=== PATIENT | male | born 1995 | race Hispanic/Latino ===

== ENCOUNTER 2022-06-01 13:26 | Emergency (ER) | payer SELFPAY ==
[2022-06-01 14:59] VITALS: BP 149/71; PULSE 76; RESP 16; TEMP 37.2; O2SAT 100
--- NOTE | 2022-06-01 16:31 | PC.NURSE ---
1558- I did not see nor do any assessments on this pt. Tech attempted to call pt for triage x3s, pt did not answer.
== END 2022-06-01 16:21 | disposition left against medical advice (07) ==
PROVIDERS: Emergency Provider Internal Medicine Hematology & Oncology
DX: Z53.21 Procedure and treatment not carried out due to patient leaving prior to being seen by health care provider (principal)
CPT/HCPCS: 99199

== ENCOUNTER 2022-06-02 13:10 | Emergency (ER) | payer BC, SELFPAY ==
--- NOTE | ~2022-06-02 | XR_ITS ---
EXAMINATION: XR chest 2V DATE: 06/02/2022 14:21 INDICATION: Cough. TECHNIQUE: Frontal and lateral views of the chest were obtained. COMPARISON: None. FINDINGS: The chest demonstrates clear lungs without pneumonia, pleural effusion, or pneumothorax. Th e heart size is normal. IMPRESSION: 1. No acute cardiopulmonary disease. Reviewed, dictated and finalized at location A. BASIS ADMINISTRATOR
[2022-06-02 13:37] VITALS: BP 135/64; PULSE 91; RESP 16; TEMP 37.6; O2SAT 99
--- NOTE | 2022-06-02 13:43 | ED.URI ---
HPI - URI/Sore Throat General Chief Complaint: Upper Respiratory Infection Stated Complaint: COUGH Time Seen by Provider: 06/02/22 14:00 Source: patient Mode of arrival: ambulatory Limitations: no limitations History of Present Illness HPI Narrative: Carlos is a 26-year-old male patient presenting to the clinic today with complaints of chest congestion and cough x1 week. He reports he is bringing up some green and brownish red phlegm. He denies smoking. He has felt feverish and has had chills. MD elicited complaint: sore throat and nasal congestion Related Data Allergies Allergy/AdvReac Type Severity Reaction Status Date / Time No Known Allergies Allergy Verified 06/02/22 13:19 Review of Systems Review of Systems: Pertinent positives per HPI. Patient denies any fever, chills, rash, headache, visual changes, dizziness, shortness of breath, chest pain, palpitations, nausea, vomiting, diarrhea, constipation, abdominal pain, or any urinary issues. PMFSH Comments At the time of my signature, I reviewed and agree with the nursing past medical, surgical, social, and family history. There is no relevant family history pertinent to the patient complaint. Exam Narrative: General: Well-developed, well nourished, in no apparent distress Head: Normocephalic, atraumatic Eyes: Pupils equally round and reactive to light bilaterally, EOM intact, sclera and conjunctive clear, no discharge, lids normal Ears: TMs intact and clear, ear canals clear, no drainage, grossly hearing normal. Nose: Nares patent, no discharge, no inflammation, no sinus tenderness. Mouth: Oral pharynx without lesions or masses, good dentition, MMM. Neck: Supple, trachea midline, no enlargement of anterior or posterior cervical nodes, no thyroid masses or goiter palpable. Cardio: Regular rate and rhythm, s1 and s2 normal, no murmur appreciated. Resp: Clear to auscultation bilaterally, no rhonchi, rales, wheezing or rubs Course Course Emergency Course: Portions of this record may have been created with voice recognition software. Level of Care: Express Care Visit Vital Signs Vital signs: Vital Signs Temperature 37.6 C H 06/02/22 13:37 Pulse Rate 91 06/02/22 13:37 Respiratory Rate 16 06/02/22 13:37 Blood Pressure 135/64 06/02/22 13:37 Pulse Oximetry 99 06/02/22 13:37 Temperature 37.6 C H 06/02/22 13:37 Pulse Rate 91 06/02/22 13:37 Respiratory Rate 16 06/02/22 13:37 Blood Pressure 135/64 06/02/22 13:37 Pulse Oximetry 99 06/02/22 13:37 Vital signs reviewed MDM - URI/Sore Throat MDM Narrative Medical decision making narrative: At the time of visit patient is resting comfortably on the exam table. Chest x-ray was performed and was negative for any pneumonia. I suspect the patient has bronchitis/upper respiratory infection. Prescription for azithromycin, prednisone, and albuterol inhaler was sent to the pharmacy. Supportive measures were discussed with the patient he voiced understanding discharge instructions agrees to treatment plan. Differential Diagnosis Differential diagnosis: Likely upper respiratory infection, otitis media, sinusitis, viral infection, bronchitis, influenza, pharyngitis and other (COVID) Imaging Data Radiologist's impression: [address] [place], [place] [id number] XRay Report Signed Patient: Carlos Cortes : 1995 MR#: [id number] Age/Sex: 26 / M Acct:[id number] Loc: [facility]? ? ADM Date: 06/02/22Attending Dr: Ordering Physician: Andrade Messer APRN Date of Service: 06/02/22 Procedure(s): XR chest 2V Accession Number(s): [id number] cc: Andrade Messer APRN; [employer]OD PHYSICIAN~ EXAMINATION: XR chest 2V DATE: 06/02/2022 14:21 INDICATION: Cough. TECHNIQUE: Frontal and lateral views of the chest were obtained. COMPARISON: None. FINDINGS: The chest demonstrates clear lungs with
== END 2022-06-02 14:32 | disposition home or self-care (01) ==
PROVIDERS: Emergency Provider Nurse Practitioner Family
DX: J40 Bronchitis, not specified as acute or chronic (principal); J06.9 Acute upper respiratory infection, unspecified
CPT/HCPCS: 71046; 99213; G0463